=== PATIENT | male | born 1960 | race Caucasian/White ===

== ENCOUNTER 2022-11-02 06:23 | Emergency (ER) | payer MEDICARE, MEDICAID, SELFPAY ==
[2022-11-02 06:24] VITALS: BP 120/74; PULSE 111; RESP 17; TEMP 35.5; O2SAT 99; BMI 23.3
--- NOTE | 2022-11-02 06:29 | CT_ITS ---
INDICATION: trauma EXAMINATION: CT CERVICAL SPINE - CT Spine Cervical W/O Contrast Injection TECHNIQUE: Helically acquired images were obtained of the cervical spine with sagittal and coronal reconstructed images. Individualized dose optimization techniques were used for this CT. IV contrast dosage and agent: None. COMPARISON: None. FINDINGS: VERTEBRAE: No fracture or subluxation. The craniocervical junction is unremarkable. [id number] degenerative changes. NECK SOFT TISSUES: The prevertebral soft tissues are unremarkable. No pathologically enlarged lymph nodes. LUNG APICES: Clear. CT/Spine Cervical without Contras IMPRESSION: No fracture or subluxation. Electronically Signed: Chaka Covington DO at 7:26 EDT ,
--- NOTE | 2022-11-02 06:29 | RAD_ITS ---
INDICATION: trauma EXAMINATION/TECHNIQUE: X-RAY - LEFT XR Elbow Min 3 Views COMPARISON: None. FINDINGS: SOFT TISSUES: No evidence of soft tissue injury of the posterior elbow soft tissues. No evidence of an elbow effusion. Punctate hyperdensities in the posterior soft tissues. BONES/JOINTS: No fracture or dislocation. No significant degenerative changes. No erosive changes. Small olecranon enthesophyte. RAD/Elbow min 3 Views IMPRESSION: 1. No fracture or dislocation. 2. Punctate hyperdensities in the posterior soft tissues may represent foreign bodies. Electronically Signed: Chaka Covington DO at 7:00 EDT ,
--- NOTE | 2022-11-02 06:29 | CT_ITS ---
INDICATION: trauma, found unresponsive at bottom of steps EXAMINATION: CT BRAIN - CT Head or Brain W/O Contrast Injection TECHNIQUE: Multiple axial images were obtained of the head with sagittal and coronal reconstructed images. Individualized dose optimization techniques were used for this CT. IV contrast dosage and agent: None. COMPARISON: None. FINDINGS: BRAIN PARENCHYMA: No evidence of an acute infarct or intracranial hemorrhage. No evidence of a mass. CSF SPACES: The ventricles, sulci and subarachnoid cisterns are appropriate for age. CALVARIUM, SKULL BASE, PARANASAL SINUSES AND MASTOID AIR CELLS: No fracture. Mastoid air cells are clear. Visualized paranasal sinuses are unremarkable. ORBITS: The globes, extraocular muscles, optic nerves and retrobulbar fat are unremarkable. CT/Brain/Head without Contrast IMPRESSION: Normal noncontrast CT of the head. Electronically Signed: Chaka Covington DO at 7:07 EDT ,
--- NOTE | 2022-11-02 06:29 | CT_ITS ---
INDICATION: trauma, found unresponsive at bottom of steps EXAMINATION: CT Chest Abdomen And Pelvis W/ Contrast Injection TECHNIQUE: Helically acquired axial images were obtained of the chest, abdomen, and pelvis with sagittal and coronal reconstructed images. Individualized dose optimization techniques were used for this CT. IV contrast dosage and agent: 100 mL of Isovue 300. Oral contrast: None. COMPARISON: None. FINDINGS: ---Chest: LUNGS, PLEURA AND LARGE AIRWAYS: No consolidation or edema. 4 mm right middle lobe pulmonary nodule image #67 of series #6. No pleural effusion. No pneumothorax. THYROID: Unremarkable. HEART AND PERICARDIUM: Coronary artery calcifications are present. No pericardial effusion. MEDIASTINUM AND JOSEF: No mediastinal or hilar adenopathy. Esophagus is unremarkable. No hiatal hernia. VESSELS: No thoracic aortic aneurysm or dissection. No obvious central pulmonary embolism although this study was not performed with pulmonary embolism protocol. BONES: Acute nondisplaced fracture of the left posterior 12th rib. ---Abdomen/Pelvis: VESSELS: No abdominal aortic aneurysm or dissection. LIVER: No evidence of a mass. No intrahepatic or extrahepatic biliary duct dilation. GALLBLADDER: No calcified stones. No evidence of cholecystitis. PANCREAS: No focal solid or cystic mass. No evidence of pancreatitis. SPLEEN: Normal. ADRENAL GLANDS: Normal. KIDNEYS AND URETERS: No urinary tract stone. No hydronephrosis or hydroureter. No significant asymmetric perinephric stranding. URINARY BLADDER: Unremarkable. BOWEL: No evidence of diverticulosis or diverticulitis. Appendix appears normal. No evidence of bowel obstruction. REPRODUCTIVE ORGANS: No evidence of a pelvic mass. PERITONEUM: No intraabdominal free fluid or free air. LYMPH NODES: No pathologically enlarged mesenteric or retroperitoneal lymph nodes. ABDOMINAL WALL: No abdominal or pelvic wall hernia. BONES: No acute abnormality. CT/CT Chest, Abd, Pel w/Contrast IMPRESSION: 1. Acute nondisplaced fracture of the left posterior 12th rib. 2. No other evidence of acute traumatic injury of the chest, abdomen or pelvis. 3. 4 mm right middle lobe pulmonary nodule. Fleischner criteria recommends follow-up CT of the chest in 12 months if the patient has increased risk factors for lung cancer. Otherwise no follow-up is recommended. Electronically Signed: Chaka Covington DO at 7:22 EDT ,
--- NOTE | 2022-11-02 06:33 | EX.ED.DYSGE1 ---
HPI History of Present Illness Chief Complaint: Unresponsive Detail of Chief Complaint: Trauma, confusion Informant: patient and EMS Narrative Narrative: AfterPatient presents to the emergency department via EMS being found in parking lot of apartment buildings near steps. Patient had been crawling around the area and bystanders called EMS. Patient very poor historian and cannot give history. He does admit to drinking alcohol last night. Unable to give his name or much history otherwise. Fingerstick blood sugar per EMS in the 200s. ROS ROS ED Review of Systems ROS Unobtainable: due to mental condition, due to mental status and other Constitutional Constitutional ED: Reports lethargy; Denies chills, fever(s), sweats or weight loss Eyes Eyes: Denies blurry vision, change in vision or diplopia ENT ENT ED: Denies rhinorrhea or sore throat Cardiovascular Cardiovascular: Reports chest pain and racing heartbeat; Denies orthopnea Respiratory/Chest Respiratory/Chest: Reports dyspnea and dyspnea on exertion; Denies cough, orthopnea or sputum Gastrointestinal Gastrointestinal: Denies abdominal pain, diarrhea, nausea or vomiting Genitourinary Genitourinary ED: Denies dysuria, hematuria or urinary frequency Musculoskeletal Musculoskeletal: Denies arthralgias, back pain, myalgias or neck pain Integumentary Denies abscess, Abrasions or rash Neurologic Neurologic: Denies headache(s) or weakness Psychiatric Psychiatric: Denies anxiety, depression or suicidal thoughts Endocrine Endocrinology: Denies polydipsia, polyphagia or polyuria Hematologic/Lymphatic Hematologic/Lymphatic: Denies easy bleeding, easy bruising or lymphadenopathy Allergic/Immunologic Allergic/Immunologic ED: Denies mouth swelling, tongue swelling or urticaria EXAM Physical Exam Const Vital Signs: 11/02/22 06:24 11/02/22 08:14 Temperature 96 F L Temperature Source Temporal Pulse Rate 111 Respiratory Rate 17 L Blood Pressure 120/74 H 148/86 H Blood Pressure Mean 89 106 Pulse Ox 99 100 Oxygen Delivery Method Room Air Room Air Positive well nourished and well developed General Appearance ED: well developed and NAD HEENT Reports TM's clear and moist mucous membranes normocephalic and atraumatic; Negative for trauma or tenderness Tympanic Membrane ED: Yes TM's clear Eyes PERRL and EOMs intact bilaterally General Eye ED: Negative for pale conjunctiva or scleral icterus Neck no lymphadenopathy, supple and no JVD General: Negative for tenderness Chest Wall inspection of chest normal and palpation of chest normal Chest: Negative for tenderness Resp normal respiratory effort and clear to auscultation bilaterally Effort and Inspection: Negative for respiratory distress or pain with movement Auscultation: Negative for rhonchi, wheezes or diminished lung sounds Cardio regular rate, regular rhythm, S1 normal heart sound, S2 normal heart sound and no murmurs Peripheral Pulses: pulses 2+ throughout GI normal to inspection, nondistended, normoactive bowel sounds, soft to palpation, non-distended and no masses GI Narrative: Ecchymosis and bruising to anterior abdomen. Diffuse tenderness to the abdomen with some guarding. Back/Spine no CVA tenderness and no thoracic nor lumbar tenderness Extremity Extremity Narrative: Multiple abrasions to elbows and knees. General Extremety ED: Negative for edema General Extremity: Negative for edema Neuro No oriented x3, CN's II-XII intact bilaterally, no sensory deficits noted and No gait normal Neuro Narrative: Awake and opens his eyes. Follows some commands. Tries to answer some questions but has mumbled and garbled speech. Sensorium / Orientation: awake, alert, oriented to person, oriented to place and oriented to time Motor Exam: strength 5/5 throughout and strength abnormal Psych mental status grossly normal Skin no rashes or lesions noted and no wounds MDM MDM MDM Narrative Medical decision making narrative: Patient presents with mental status change and evidence of external trauma. Patient unable to give history. IV line established and patient placed on a awake overnight monitor. EKG obtained arrival shows sinus rhythm with a rate of 106 bpm with no acute ST segment changes. CBC with differential showed a white count of 12.3 with hemoglobin 12.3 and platelet count of 253. Chemistries unremarkable. Alcohol was less than 3 and toxicology screen positive for marijuana. CT scan of the brain without contrast was unremarkable. CT scan of the C-spine showed no fractures. CT scan of the abdomen pelvis as well as chest with contrast obtained showed fracture of the left 12th rib otherwise no significant evidence of trauma. During his stay his sensorium improved and was able to know that he was in [place] and knew the year. Still somnolent falls asleep easily. Discussed case with our hospitalist who recommended transfer to trauma center given his ongoing mental status change and evidence of trauma. Discussed case with [facility] emergency room physician Dr. Pastor who asked that I speak with Dr. Angulo their trauma surgeon. I discussed case with trauma surgeon who recommended transfer to their ER for evaluation and definitive care. Patient was ordered tetanus booster. Patient has multiple abrasions including of the left elbow. X-rays of the left elbow were negative for fracture. Lab Data Attestation: I reviewed the patient's lab results. Labs: Laboratory Results - last 24 hr 11/02/22 11/02/22 06:30 07:25 WBC 12.3 RBC 3.78 L Hgb 12.3 L Hct 35.7 L MCV 94.4 L MCH 32.5 MCHC 34.5 RDW Std Deviation 43.8 RDW Coeff of Estefania 12.6 Plt Count 253 MPV 8.8 Immature Gran % (Auto) 0.400 Neut % (Auto) 90.8 H Lymph % (Auto) 5.5 L [place] % (Auto) 3.0 L Eos % (Auto) 0.1 Baso % (Auto) 0.2 Absolute Neuts (auto) 11.2 H Absolute Lymphs (auto) 0.68 L Nucleated RBC % 0 PT 15.1 H INR 1.2 APTT 24.7 Sodium 138 Potassium 3.1 L Chloride 107 Carbon Dioxide 19.0 L Anion Gap 12 BUN 13 Creatinine 1.44 H Estim Creat Clear Calc 52.51 Est GFR (MDRD) Af Amer TNP Est GFR (MDRD) Non-Af TNP BUN/Creatinine Ratio 9.0 L Glucose 273 H Calcium 9.1 Total Bilirubin 0.60 AST 39 H ALT 28 Alkaline Phosphatase 73 Troponin I High Sens 10 Total Protein 6.7 Albumin 3.6 Globulin 3.1 Albumin/Globulin Ratio 1.2 Lipase 22 Urine Opiates Screen NEGATIVE Urine Methadone Screen NEGATIVE Ur Barbiturates Screen NEGATIVE Ur Phencyclidine Scrn NEGATIVE Ur Amphetamines Screen NEGATIVE MDMA (Ecstasy) Screen NEGATIVE U Benzodiazepines Scrn NEGATIVE Urine Cocaine Screen NEGATIVE U Cannabinoids Screen POSITIVE H Ur Drug Screen Comment Ethyl Alcohol < 3.0 Radiography Diagnostic Testing: Clinical Impression(s) from Imaging Studies Brain CT 11/02/22 06:29 IMPRESSION: Normal noncontrast CT of the head. Electronically Signed: Chaka Covington DO at 7:07 EDT , Cervical Spine CT 11/02/22 06:29 IMPRESSION: No fracture or subluxation. Electronically Signed: Chaka Covington at 7:26 EDT Reading Location ID and State: [facility] / [place] Tel , Service support , Chest/Abdomen/Pelvis CT 11/02/22 06:29 IMPRESSION: 1. Acute nondisplaced fracture of the left posterior 12th rib. 2. No other evidence of acute traumatic injury of the chest, abdomen or pelvis. 3. 4 mm right middle lobe pulmonary nodule. Fleischner criteria recommends follow-up CT of the chest in 12 months if the patient has increased risk factors for lung cancer. Otherwise no follow-up is recommended. Electronically Signed: Chaka CovingtonDO at 7:22 EDT Reading Location ID and State: [facility] / [place] Tel , Service support , Elbow X-Ray 11/02/22 06:29 IMPRESSION: 1. No fracture or dislocation. 2. Punctate hyperdensities in the posterior soft tissues may represent foreign bodies. Electronically Signed: Cahka CovingtonDO at 7:00 EDT Reading Location ID and State: [facility] / [place] Tel , Service support , Three-view x-rays of the left elbow obtained interpreted by myself as no evidence of fracture or dislocation. Radiology felt there may be some hyperdensities in the posterior soft tissues may represent foreign bodies. EKG Initial EKG: Attestation: I personally reviewed and interpreted this EKG as follows: Comments: Sinus rhythm with a rate of 106 bpm with no acute ST segment changes Discharge Plan Triage Chief Complaint: Unresponsive ED Provider: Kaylee Leiva Dx/Rx/DC Orders Clinical Impression: Acute alteration in mental status, Fracture of rib, Abrasion Primary Care Provider: Care Physician,No Primary Referrals: NOT,DEFINED [Non-Staff] - Disposition Disposition: DC/Tx to Another Type of HCF
[2022-11-02 06:42] LABS: Absolute Lymphocyte Count 0.68 X10^3/uL (0.83-4.51); Absolute Neutrophil Count 11.2 X10^3/uL (2.0-7.7); Basophil# 0.02 X10^3/uL; Basophil% 0.2 % (0-1); Eosinophil# 0.01 X10^3/uL; Eosinophils% 0.1 % (0-2); Hematocrit 35.7 % (45-61); Hemoglobin 12.3 g/dL (13.0-16.5); Lymphocyte # 0.68 X10^3/ul (0.83-4.51); Lymphocyte % 5.5 % (19-29); Mean Corp Hgb Conc 34.5 g/dL (29-37); Mean Corpuscular Hgb 32.5 pg (31.0-37.0); Mean Corpuscular Volume 94.4 fL (95-115); Mean Platelet Vol. 8.8 fl (6.2-12.0); Monocyte# 0.37 X10^3/uL; NRBC Flagged by Analyzer 0 % (0-5); Neutrophil % 90.8 % (32-62); Platelet Count 253 K/mm3 (250-450); RBC Distribution Width CV 12.6 % (11.6-17.9); RBC Distribution Width SD 43.8 fl (35.1-43.9); Red Blood Count 3.78 M/mm3 (4.0-5.9); White Blood Count 12.3 K/mm3 (9-35)
[2022-11-02 06:51] LABS: International Normalized Ratio 1.2; Prothrombin Time (Protime)PT. 15.1 SECONDS (11.7-14.9)
[2022-11-02 06:52] LABS: Partial Thromboplast Time 24.7 Seconds (24.1-36.2)
--- NOTE | 2022-11-02 06:53 | EKG12_ITS ---
Test Reason : UNRESPONSIVE Blood Pressure : / mmHG Vent. Rate : 106 BPM Atrial Rate : 106 BPM P-R Int : 154 ms QRS Dur : 086 ms QT Int : 360 ms P-R-T Axes : 071 064 062 degrees QTc Int : 478 ms Sinus tachycardia Otherwise normal ECG Confirmed by GAVINO ALCALA, DILIP ([id number]), editor book GABRIELA MORAN ([id number]) on 11/16/2022 2:08:32 PM Referred By: SAVI Confirmed By:CAMILLE MANCIA MD
--- NOTE | 2022-11-02 06:56 | NURSING ---
NO OLD EKGS
[2022-11-02 07:03] LABS: ALB/GLOB Ratio 1.2 RATIO (0.9-2.4); AST(SGOT) 39 U/L (15-37); Alanine Aminotransfer ALT/SGPT 28 U/L (16-61); Albumin, Serum 3.6 g/dL (3.2-5.0); Alkaline Phosphatase 73 U/L (45-117); Anion Gap 12 (5-15); BUN 13 mg/dL (7-18); Calcium,Total 9.1 mg/dL (8.5-10.1); Chloride 107 mmol/L (98-107); Creatinine, Serum 1.44 mg/dL (0.70-1.30); Estimated Creatinine Clearance 52.51 ml/min; Globulin 3.1 g/dL (2.2-4.2); Glucose 273 mg/dL (74-106); Lipase 22 U/L (13-75); Potassium 3.1 mmol/L (3.5-5.1); Protein, Total 6.7 g/dL (6.4-8.2); Sodium Level 138 mmol/L (136-145); Troponin-I HS 10 pg/mL (3.0-78.0)
[2022-11-02] MEDS: 0.9% Normal Saline 1,000 ML 150 ML IV (07:05)
[2022-11-02 07:09] LABS: Alcohol, Blood (Medical)-Serum < 3.0 mg/dL
[2022-11-02 07:44] LABS: Amphetamine Urine VISTA NEGATIVE (<1000 ng/mL); Barbiturate Urine VISTA NEGATIVE (< 200 ng/mL); Benzodiazepine Urine VISTA NEGATIVE (< 200 ng/mL); Cocaine Urine VISTA NEGATIVE (< 300 ng/mL); Ecstacy Urine VISTA NEGATIVE (< 500 ng/mL); Methadone Urine VISTA NEGATIVE (< 300 ng/mL); PCP Urine VISTA NEGATIVE (< 25 ng/mL); THC Urine VISTA POSITIVE (< 50 ng/mL); Vista UDS pH Range 6
--- NOTE | 2022-11-02 07:50 | NURSING ---
CALLED [facility] FOR TRANSFER
[2022-11-02 08:14] VITALS: BP 148/86; O2SAT 100
--- NOTE | 2022-11-02 08:20 | NURSING ---
CALLED [facility], ETA IS 90 MIN
[2022-11-02] MEDS: Diphth,Pertuss(Acell),Tet Vac 0.5 ML Vial IM (08:23)
[2022-11-02 08:42] LABS: CPK Total, Creatine Kinase 980 U/L (39-308)
[2022-11-02 10:04] VITALS: BP 105/62; PULSE 84; O2SAT 100
--- NOTE | 2022-11-02 10:04 | ED.RN ---
report called to laurel FLORES
[2022-11-02 10:30] VITALS: BP 122/78; PULSE 64; RESP 14; O2SAT 98
== END 2022-11-02 10:38 | disposition other institution (70) ==
PROVIDERS: Emergency Provider Emergency Medicine; Visit Provider Emergency Medicine
DX: R41.82 Altered mental status, unspecified (principal); S22.32XA Fracture of one rib, left side, initial encounter for closed fracture; S50.312A Abrasion of left elbow, initial encounter; Y92.481 Parking lot as the place of occurrence of the external cause; X58.XXXA Exposure to other specified factors, initial encounter
CPT/HCPCS: 51702; 70450; 71260; 72125; 73080; 74177; 80053; 80307; 82077; 82550; 83690; 84484; 85025; 85610; 85730; 86850; 86900; 86901; 90715; 93005; 99285; J7030; Q9967; A4216